=== PATIENT | male | born 1995 | race Hispanic/Latino ===

== ENCOUNTER 2022-04-03 16:11 | Emergency (ER) | payer OTHER ==
[2022-04-03] MEDS ORDERED: HYDROcodone/Acetaminophen 5/325 mg Tablet ONE (16:42)
[2022-04-03] MEDS ORDERED: Boostrix 0.5 ML (Tdap) VIAL ONE (16:42)
[2022-04-03] MEDS ORDERED: CEFAZOLIN 1 GM VIAL ONE (18:07)
[2022-04-03] MEDS ORDERED: Sterile Water 10 ML ONE (18:11)
== END 2022-04-03 18:54 | disposition short-term general hospital (02) ==
LOC: NAV ERS 16:11
DX: S68.123A Partial traumatic metacarpophalangeal amputation of left middle finger, initial encounter (principal); W26.8XXA Contact with other sharp object(s), not elsewhere classified, initial encounter; Z23 Encounter for immunization
CPT/HCPCS: 90471; 90715; 96372; J0690